=== PATIENT | female | born 1980 | race Caucasian/White ===

== ENCOUNTER → 2021-04-09 | Outpatient (CLI) | payer OTHER ==
[~2021-04-09] MED LIST: FLEXERIL 10 MG10 MG PO
[2021-04-09 16:08] LABS: HEMOGLOBIN 14.9 gm/dl (12.3-15.3); RED BLOOD COUNT 4.64 M/UL (4.00-5.10); WHITE BLOOD COUNT 9.3 K/UL (4.5-11.0)
[2021-04-09 16:26] LABS: BUN/CREATININE RATIO 15 (0-10)
[2021-04-10 10:14] LABS: HBSAG SCREEN Negative (Negative); HEP A AB, IGM Negative (Negative); HEP B CORE AB, IGM Negative (Negative); HEP C VIRUS AB <0.1 (0.0-0.9)
[2021-04-11 12:11] LABS: CHOLESTEROL, TOTAL 203 mg/dL (100-199); HDL SIZE 9.6 nm (>=9.2); HDL-C 55 mg/dL (>39); HDL-P (TOTAL) 27.9 umol/L (>=30.5); LARGE HDL-P 7.4 umol/L (>=4.8); LARGE VLDL-P 4.2 nmol/L (<=2.7); LDL SIZE 21.6 nm (>20.5); LDL SIZE 21.6 nm (>=20.8); LDL-C 128 mg/dL (0-99); LDL-P 1193 nmol/L (<1000); LP-IR SCORE 36 (<=45); SMALL LDL-P 192 nmol/L (<=527); TRIGLYCERIDES 113 mg/dL (0-149); VLDL SIZE 47.2 nm (<=46.6)
== END ==
LOC: LAB 13:54
PROVIDERS: Nurse Practitioner Family
DX: M15.0 Primary generalized (osteo)arthritis (principal); M79.7 Fibromyalgia; M10.9 Gout, unspecified; M05.79 Rheumatoid arthritis with rheumatoid factor of multiple sites without organ or systems involvement; M25.50 Pain in unspecified joint; M32.10 Systemic lupus erythematosus, organ or system involvement unspecified; M13.0 Polyarthritis, unspecified; M51.37 Other intervertebral disc degeneration, lumbosacral region; M19.90 Unspecified osteoarthritis, unspecified site; I10 Essential (primary) hypertension; R53.83 Other fatigue; G89.29 Other chronic pain; Z79.899 Other long term (current) drug therapy; Z79.1 Long term (current) use of non-steroidal anti-inflammatories (NSAID)
CPT/HCPCS: 36415; 80053; 80061; 80074; 82150; 82550; 83036; 83690; 83704; 84439; 84443; 85025; 85652; 86140

== ENCOUNTER → 2021-08-06 | Outpatient (CLI) | payer OTHER | LOC: US 14:57 | DX: E05.10 Thyrotoxicosis with toxic single thyroid nodule without thyrotoxic crisis or storm (principal) | CPT/HCPCS: 76536 ==

== ENCOUNTER 2021-10-26 10:27 | Emergency (ER) | payer OTHER ==
[2021-10-26 12:12] LABS: HEMOGLOBIN 14.8 gm/dl (12.3-15.3); RED BLOOD COUNT 4.56 M/UL (4.00-5.10); WHITE BLOOD COUNT 8.1 K/UL (4.5-11.0)
[2021-10-26 12:38] LABS: BUN/CREATININE RATIO 14 (0-10)
== END 2021-10-26 17:39 | disposition home or self-care (01) ==
LOC: ER1 10:27
PROVIDERS: Nurse Practitioner; Physician Assistant
DX: R07.89 Other chest pain (principal); N89.8 Other specified noninflammatory disorders of vagina; R63.4 Abnormal weight loss; F17.210 Nicotine dependence, cigarettes, uncomplicated; Z88.0 Allergy status to penicillin; Z88.8 Allergy status to other drugs, medicaments and biological substances; Z86.16 Personal history of COVID-19
CPT/HCPCS: 71045; 80053; 80307; 81001; 82550; 82553; 83735; 84100; 84439; 84443; 84484; 84703; 85025; 85379; 93005; 96360; 99285